=== PATIENT | female | born 1985 | race American Indian/Alaskan Native ===

== ENCOUNTER 2021-03-24 16:15 | Emergency (ER) | payer OTHER ==
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
[2021-03-25] MEDS ORDERED: ACETAMINOPHEN 500 MG TAB PO ONE (01:32)
[2021-03-25] MEDS ORDERED: IBUPROFEN 600 MG TAB PO ONE (01:32)
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
[2021-03-25 03:18] VITALS: BP 149/105
== END 2021-03-25 03:10 | disposition home or self-care (01) ==
LOC: ED 16:15
DX: S93.402A Sprain of unspecified ligament of left ankle, initial encounter (principal); S76.012A Strain of muscle, fascia and tendon of left hip, initial encounter; S80.02XA Contusion of left knee, initial encounter; M62.830 Muscle spasm of back; M54.5 Low back pain; Z79.899 Other long term (current) drug therapy; V89.2XXA Person injured in unspecified motor-vehicle accident, traffic, initial encounter; Y93.89 Activity, other specified; Y92.488 Other paved roadways as the place of occurrence of the external cause; Y99.8 Other external cause status
CPT/HCPCS: 72100; 99283